=== PATIENT | female | born 1950 | race African-American/Black ===

== ENCOUNTER 2017-10-17 00:14 | Inpatient (IN) | payer OTHER ==
[~2017-10-17] VITALS: Ht 160 cm; Wt 110.2 kg
[2017-10-17] MEDS ORDERED: NITROGLYCERIN OINT 1GM/INCH UDPKT TD STA (02:13)
[2017-10-17] MEDS ORDERED: FUROSEMIDE 40MG/4ML VIAL IV STA (02:13)
[2017-10-17 02:33] LABS: BASOPHILS % 0.7 % (0.0-2.0); EOSINOPHILS % 3.6 % (0.0-5.0); HEMATOCRIT. 26.2 % (36.0-48.0); HEMOGLOBIN. 8.3 g/dL (12.0-16.0); LYMPHOCYTES % 14.1 % (20.0-50.0); MEAN CORPUSCULAR HEMOGLOBIN 29.3 pg (28.0-32.0); MEAN CORPUSCULAR VOLUME 92.1 fL (81.0-99.0); MEAN PLATELET VOLUME 7.3 fl (7.4-10.4); MONOCYTES % 6.3 % (2.0-8.0); NEUTROPHILS % 75.3 % (40.0-76.0); PLATELET 337 x1000/uL (130-400); RED BLOOD CELL COUNT 2.84 mill/uL (4.2-5.4); RED CELL DISTRIBUTION WIDTH 17.6 % (11.6-14.6)
[2017-10-17 02:36] LABS: INR 1.2; PARTIAL THROMBOPLASTIN TIME 30.1 sec (23.4-31.0); PROTHROMBIN TIME 12.6 sec (9.4-11.6)
[2017-10-17 02:44] LABS: CARBON DIOXIDE 28 mEq/L (21-32); CHLORIDE 109 mEq/L (98-107); TROPONIN I < 0.02 ng/mL (0.00-0.04)
[2017-10-17] MEDS ORDERED: ASPIRIN 325MG EC TABLET PO ONE (04:00)
[2017-10-17] MEDS ORDERED: ENOXAPARIN 40MG/0.4ML SYR SUBCUT SCH (10:45)
[2017-10-17] MEDS ORDERED: LORAZEPAM 0.5MG TABLET PO PRN (10:45)
[2017-10-17] MEDS ORDERED: IPRATROPIUM/ALBUTEROL 0.5-3(2.5)MG/3ML NEB INH PRN (10:45)
[2017-10-17] MEDS ORDERED: TRAMADOL 50MG TABLET PO PRN (10:45)
[2017-10-17] MEDS ORDERED: DIPHENHYDRAMINE 50MG/ML VIAL IV PRN (10:45)
[2017-10-17] MEDS ORDERED: NA PHOS,M-B/NA PHOS,DI-BA ENEMA 118ML PR PRN (10:45)
[2017-10-17] MEDS ORDERED: ONDANSETRON HCL 4MG/2ML VIAL IV PRN (10:45)
[2017-10-17] MEDS ORDERED: ACETAMINOPHEN 325MG TABLET PO PRN (10:45)
[2017-10-17] MEDS ORDERED: GUAIFENESIN 200MG/10ML SUGAR FREE UDC PO PRN (10:45)
[2017-10-17] MEDS ORDERED: MORPHINE SULFATE 4 MG/ML CPJ (NOT FOR IM USE) IV PRN (10:45)
[2017-10-17] MEDS ORDERED: NITROGLYCERIN 0.4MG TABLET SL SL PRN (10:45)
[2017-10-17] MEDS ORDERED: MAGNESIUM/ALUMINUM HYDROXIDE/SIMETHICONE 30ML UDC PO PRN (10:45)
[2017-10-17] MEDS ORDERED: DOCUSATE SODIUM 100MG CAPSULE PO PRN (10:45)
[2017-10-17] MEDS ORDERED: ASPIRIN 325MG EC TABLET PO NR (10:50)
[2017-10-17] MEDS: CLONIDINE 0.1MG TABLET PO PRN (12:43)
[2017-10-17 16:03] LABS: CREATINE KINASE 122 IU/L (26-192); CREATINE KINASE MB FRACTION 1.2 ng/mL (0.5-3.6); TROPONIN I < 0.02 ng/mL (0.00-0.04)
[2017-10-17] MEDS ORDERED: ZOLPIDEM TARTRATE 5MG TABLET PO PRN (21:00)
[2017-10-17 23:23] LABS: CREATINE KINASE 112 IU/L (26-192); CREATINE KINASE MB FRACTION 1.1 ng/mL (0.5-3.6); TROPONIN I < 0.02 ng/mL (0.00-0.04)
[2017-10-18] MEDS: LISINOPRIL 20MG TABLET PO SCH ×3 (02:59→20:48)
[2017-10-18] MEDS: FUROSEMIDE 40MG/4ML VIAL IVP SCH ×3 (02:59→20:48)
[2017-10-18] MEDS: SPIRONOLACTONE 25MG TABLET PO SCH ×3 (02:59→20:48)
[2017-10-18 03:00] VITALS: BP 150/71
[2017-10-18] MEDS: CLONIDINE 0.1MG TABLET PO PRN (06:26)
[2017-10-18 07:24] LABS: *AMPHETAMINES SCREEN URINE NEGATIVE (NEGATIVE); *BARBITURATES SCREEN URINE NEGATIVE (NEGATIVE); *BENZODIAZEPINES SCREEN URINE NEGATIVE (NEGATIVE); *COCAINE SCREEN URINE NEGATIVE (NEGATIVE); CANNABINOID URINE SCREEN NEGATIVE (NEGATIVE); METHADONE URINE SCREEN NEGATIVE (NEGATIVE); OPIATES URINE SCREEN PRESUMTIVE POSITIVE (NEGATIVE); PHENCYCLIDINE URINE SCREEN NEGATIVE (NEGATIVE)
[2017-10-18] MEDS: SUCRALFATE 1 G/10 ML UDC PO SCH ×4 (07:49→20:48)
[2017-10-18 08:00] VITALS: BP 170/64
[2017-10-18] MEDS: FAMOTIDINE 20MG/2ML VIAL IV SCH ×3 (09:10→21:00)
[2017-10-18] MEDS: GUAIFENESIN/DM 600MG/30MG ER TAB 12HR PO SCH ×2 (09:11→20:48)
[2017-10-18] MEDS: ENOXAPARIN 30MG/0.3ML SYR SUBCUT SCH ×2 (09:12→20:50)
[2017-10-18] MEDS: ASPIRIN 325MG EC TABLET PO SCH (09:12)
[2017-10-18 12:00] VITALS: BP 128/71
[2017-10-18 16:00] VITALS: BP 162/56
[2017-10-18 20:00] VITALS: BP 156/46
[2017-10-19] VITALS (7 sets, daily range): BP systolic 147–174; BP diastolic 43–85
[2017-10-19] MEDS: SUCRALFATE 1 G/10 ML UDC PO SCH ×4 (07:47→20:40)
[2017-10-19] MEDS: ENOXAPARIN 30MG/0.3ML SYR SUBCUT SCH ×2 (08:49→20:41)
[2017-10-19] MEDS: LISINOPRIL 20MG TABLET PO SCH ×2 (08:49→20:40)
[2017-10-19] MEDS: FUROSEMIDE 40MG/4ML VIAL IVP SCH ×2 (08:49→20:40)
[2017-10-19] MEDS: FAMOTIDINE 20MG/2ML VIAL IV SCH ×2 (08:49→20:54)
[2017-10-19] MEDS: ASPIRIN 325MG EC TABLET PO SCH (08:50)
[2017-10-19] MEDS: GUAIFENESIN/DM 600MG/30MG ER TAB 12HR PO SCH ×2 (08:50→20:46)
[2017-10-19] MEDS: SPIRONOLACTONE 25MG TABLET PO SCH ×2 (08:50→20:40)
[2017-10-19] MEDS ORDERED: METOLAZONE 10MG TABLET PO NR (09:45)
[2017-10-19 09:58] LABS: BASOPHILS % 0.7 % (0.0-2.0); EOSINOPHILS % 0.6 % (0.0-5.0); HEMATOCRIT. 28.1 % (36.0-48.0); HEMOGLOBIN. 8.7 g/dL (12.0-16.0); LYMPHOCYTES % 15.3 % (20.0-50.0); MEAN CORPUSCULAR HEMOGLOBIN 28.6 pg (28.0-32.0); MEAN CORPUSCULAR VOLUME 92.1 fL (81.0-99.0); MEAN PLATELET VOLUME 7.7 fl (7.4-10.4); NEUTROPHILS % 77.4 % (40.0-76.0); PLATELET 332 x1000/uL (130-400); RED BLOOD CELL COUNT 3.05 mill/uL (4.2-5.4); RED CELL DISTRIBUTION WIDTH 16.8 % (11.6-14.6)
[2017-10-19 10:34] LABS: CARBON DIOXIDE 27 mEq/L (21-32); CHLORIDE 108 mEq/L (98-107)
[2017-10-20 03:41] VITALS: BP 159/56
[2017-10-20 08:00] VITALS: BP 160/56
[2017-10-20] MEDS: LISINOPRIL 20MG TABLET PO SCH (09:42)
[2017-10-20] MEDS: ASPIRIN 325MG EC TABLET PO SCH (09:42)
[2017-10-20] MEDS: SUCRALFATE 1 G/10 ML UDC PO SCH ×2 (09:42→12:41)
[2017-10-20] MEDS: GUAIFENESIN/DM 600MG/30MG ER TAB 12HR PO SCH (09:42)
[2017-10-20] MEDS: FAMOTIDINE 20MG/2ML VIAL IV SCH (09:43)
[2017-10-20] MEDS: FUROSEMIDE 40MG/4ML VIAL IVP SCH (09:43)
[2017-10-20] MEDS: SPIRONOLACTONE 25MG TABLET PO SCH (09:43)
[2017-10-20] MEDS: ENOXAPARIN 30MG/0.3ML SYR SUBCUT SCH (09:43)
[2017-10-20 12:00] VITALS: BP 152/61
[2017-10-20 12:55] VITALS: BP 152/61
== END 2017-10-20 12:00 | disposition home or self-care (01) | DRG 291 ==
LOC: ER 00:14 → 7WST 05:04 → SUPCPDRO 10:34 → ENRESERV 10-18 00:40
PROVIDERS: ADMIT Internal Medicine; ATTEND Internal Medicine
DX: I13.0 Hypertensive heart and chronic kidney disease with heart failure and stage 1 through stage 4 chronic kidney disease, or unspecified chronic kidney disease (principal); I50.43 Acute on chronic combined systolic (congestive) and diastolic (congestive) heart failure; N17.9 Acute kidney failure, unspecified; E44.0 Moderate protein-calorie malnutrition; E11.22 Type 2 diabetes mellitus with diabetic chronic kidney disease; Z68.41 Body mass index [BMI] 40.0-44.9, adult; D63.8 Anemia in other chronic diseases classified elsewhere; E11.65 Type 2 diabetes mellitus with hyperglycemia; E78.5 Hyperlipidemia, unspecified; E66.9 Obesity, unspecified; E78.00 Pure hypercholesterolemia, unspecified; I34.0 Nonrheumatic mitral (valve) insufficiency; I42.9 Cardiomyopathy, unspecified; N18.9 Chronic kidney disease, unspecified; Z96.659 Presence of unspecified artificial knee joint
CPT/HCPCS: 36415; 51702; 71045; 80048; 80053; 80061; 80305; 82550; 82553; 82962; 83036; 83735; 83880; 84484; 85025; 85610; 85730; 93005; 93306; 93970; 96374; 99285; J1650; J1940; J3490